=== PATIENT | female | born 1970 | race Hispanic/Latino ===

== ENCOUNTER 2016-05-06 11:33 | Day surgery (SDC) | payer SELFPAY ==
[~2016-05-06] VITALS: Ht 165.1 cm; Wt 86.7 kg
[2016-05-06] VITALS (8 sets, daily range): BP systolic 95–117; BP diastolic 51–69; PULSE 55–83; RESP 15–17; O2SAT 95–99
[~2016-05-06 11:33] MED LIST: ASPI-973 PO; IBUP400T22 PO; LOVA10TA PO; METF1000 PO; MULT-1018 PO
[2016-05-06] MEDS ORDERED: fentaNYL-PF 50 mCg/mL 2 mL Inj ONE (11:34)
[2016-05-06] MEDS ORDERED: MetoCLOpramide 5 mg/mL 2 mL Inj ONE (11:34)
[2016-05-06] MEDS ORDERED: Ondansetron 2 mg/mL 2 mL Inj ONE (11:34)
[2016-05-06] MEDS ORDERED: Propofol 10,000 mCg/mL 20 mL Inj ONE (11:34)
[2016-05-06] MEDS: Lactated Ringer's 1,000 ML IV SCH ×2 (12:01→13:29)
[2016-05-06] MEDS ORDERED: CHOL100043 PO (12:01)
[2016-05-06] MEDS ORDERED: Lactated Ringer's 1,000 ML IV SCH (13:12)
[2016-05-06] MEDS ORDERED: Lactated Ringer's 500 ML IV PRN (13:12)
--- NOTE | 2016-05-06 13:12 | PCM.HPANE ---
Patient Data Surgeon Admitting Provider: Attending Provider:Bao Reis MD Primary Care Physician:Verena Patiño MD Other Provider:Agnes [place] Anesthesia Reason for Visit Thickened Endometrium, Right Vulvar Cyst Ht/WT & BMI Height (Feet): 5 Height (Inches): 5 Weight (Kilograms): 86.7 Body Mass Index 31.00 Allergies Coded Allergies: shrimp (Verified Allergy, Unknown, 05/06/16) Uncoded Allergies: SHRIMP, SEAFOOD (Allergy, Unknown, 05/05/16) Past Anesthesia History Anesthesia History: Denies:: Anesthesia Reactions, Fam Anesthesia Reaction, Fam Malignant Hypertherm, Malignant Hyperthermia Diabetes History Hx Diabetes?: Yes Type of Diabetes: Type II Glycemic Control: Oral Medication MRSA MRSA: No Medications Blood Thinner: Aspirin Hypertension Medication: No Home Meds Incl Beta Shona: No Reported Medications Cholecalciferol (Vitamin D3) (Vitamin D)1,000 Unit Tablet1,000 Unit PO DAILY #1 BOTTLE Ref 0 05/06/16 Ibuprofen 400 Mg [id number] Mg PO TID PRN For Pain Ref 0 05/05/16 Metformin (Glucophage)1,000 Mg Tablet1,000 Mg PO BID Ref 0 05/05/16 Lovastatin 10 Mg [id number] Mg PO HS #30 TABLET Ref 0 05/05/16 Aspirin 81 Mg [id number] Mg PO DAILY Ref 0 05/05/16 Multivitamin (Multi Vitamin Daily)1 Each Tablet1 Each PO DAILY 30 Days Ref 0 05/05/16 Discontinued Reported Medications No Historical Medication Ea 04/04/13 History History of ENT Problems?: Yes HEENT History: Positive for:: TMJ Denies:: Cataracts Hearing Problem Denture Type: Partial- Upper Partial- Lower Hx of Heart Problems?: No Cardiovascular History: Denies:: Hypertension Hx of Respiratory Problem?: No Respiratory History: Denies:: Asthma COPD Emphysema Oxygen Administration Pneumonia Tuberculosis Use of C-PAP Machine Use of Inhalers / NEBS Hx Neurologic Problems?: No Neurological History: Denies:: CVA Headaches Multiple Sclerosis Parkinson's Disease Seizures TIA Hx of GI Problems?: No Gastrointestinal History: Denies:: Cirrhosis Gall Bladder Disease Gastroesphageal Reflux Heartburn Hiatal Hernia Rectal Bleeding Hx of Problems?: No Genitourinary History: Denies:: Kidney Stones Urinary Tract Infection Female Hx: Denies:: Currently Endometriosis (thickened current admission problem ) Pelvic Inflammatory Problems with Breasts? Skin History: Denies:: History Skin Disorders? Pressure Ulcers Hx Musculoskeletal Problems?: No Musculoskeletal History: Denies:: Back Injury Degenerative Joint Fibromyalgia Joint Replacement Musculoskeletal Trauma Osteoarthritis Hx of Psycho/Social Problems?: No Hx Surgeries?: Yes (tubal ligation 09/2010, umb hernia) Hx Any Other Health Problems?: Yes Other History: Denies:: Cancer Endocrine Disease Hospitalization Thyroid Disease History Blood Transfusions: Denies:: Blood Transfusions Hx Diabetes: Yes Hx Alcohol Use: NoHx Substance Use: NoHave You Smoked inLast 12 mo: No Stop/Bang S-Snoring: Do You Snore Loudly: No T-Tired: feel tired, fatigued: No O-Obsered: Observed not breath: No P-Blood Pressure: treated: No B- Body Mass Index > 35 kg/m2: No A- Age over 50: No N- Neck Large Circumference: No G- Gender Male: No JULIANNA Total Score: 0 JULIANNA Risk Assessment: Low Risk, <3 Yes Risk Assessment Category Category 1A: Patient has history of documented sleep apnea, and HAS NOT received any narcotic, sedative or anesthesia administration during this stay. Category 1B: Patient has history of documented sleep apnea, and HAS received any narcotic , sedative or anesthesia administration during this stay Category 2: Patient has SUSPECTED Obstructive Sleep Apnea, and HAS received any narcotic , sedative or anesthesia administration during this stay. Category 3: Patient has SUSPECTED Obstructive Sleep Apnea and HAS NOT received narcotic, sedative or anesthesia administration during this stay. Category 4: Outpatient in Procedural Areas with known sleep apnea or who screen positive for High Risk via the STOP/BANG questionnaire. Exam Exam Vital Signs Vital Signs Date Time Temp Pulse Resp B/P Pulse Ox O2 Delivery O2 Flow Rate FiO2 05/06/16 12:08 37 55 16 95/62 95 Room Air General Appearance: Alert, Oriented X3, Cooperative, No Acute Distress HEENT/AIRWAY: MP 1 Lungs: Clear to Auscultation, Normal Air Movement Heart: Exam Unremarkable, Regular Rate/Rhythm, No Murmurs/Rubs/Gallops Meds/Labs/Diagnostics Admission Meds Current Medications Lactated Ringer's (Lr) 1,000 ml @ 120 mls/hr [id number] IV Last administered on t 12:01; Start 05/06/16 at 05:00; Stop 05/06/16 at 13:19 Plan Impression Patient chart reviewed, patient interviewed and anesthestic plan with risks, benefits, and alternatives discussed, and informed consent obtained. NPO Status: 05/05/16 193 ASA Physical Status: ASA2 Mod Systemic Disease Anesthetic Plan: GA Bene/Risks/Altern/Consents: Yes (via aoc airspace control officer) HP Complete Prior to Induction: Yes Chuck Vaz MD May 06, 2016 12:31
[2016-05-06] MEDS ORDERED: HYDROmorphone 1 mg/mL Inj IVPUSH PRN (13:15)
[2016-05-06] MEDS ORDERED: EPHEDrine Sulfate 50 mg/mL Inj IM PRN (13:15)
[2016-05-06] MEDS ORDERED: hydrALAZINE 20 mg/mL Inj IVPUSH PRN (13:15)
[2016-05-06] MEDS ORDERED: Labetalol 5 mg/mL 4 mL Inj IV PRN (13:15)
[2016-05-06] MEDS ORDERED: MetoCLOpramide 5 mg/mL 2 mL Inj IVPUSH PRN (13:15)
[2016-05-06] MEDS ORDERED: Atropine 0.4 mg/mL Inj IVPUSH PRN (13:15)
[2016-05-06] MEDS ORDERED: hydrOXYzine Inj 25 MG/1 mL SDV IM PRN (13:15)
[2016-05-06] MEDS ORDERED: EPHEDrine Sulfate 50 mg/mL Inj IVPUSH PRN (13:15)
[2016-05-06] MEDS ORDERED: Phenylephrine 10,000 mCg/mL Inj IVPUSH PRN (13:15)
[2016-05-06] MEDS ORDERED: fentaNYL-PF 50 mCg/mL 2 mL Inj IVPUSH PRN (13:15)
[2016-05-06] MEDS ORDERED: Ondansetron 2 mg/mL 2 mL Inj IVPUSH PRN ×2 (13:15→15:10)
[2016-05-06] MEDS ORDERED: Lidocaine 1%-Epi 1:100,000 20 mL Inj INFILTRATE ONE (14:02)
[2016-05-06] MEDS ORDERED: diphenhydrAMINE 25 mg Capsule PO PRN (15:10)
--- NOTE | 2016-05-06 15:15 | PCM.ANEP1 ---
Post Anesthesia Phase 1 PACU Phase 1 Assessment Vital Signs Vital Signs Date Time Temp Pulse Resp B/P Pulse Ox O2 Delivery O2 Flow Rate FiO2 05/06/16 15:10 17 117/69 99 Nasal Cannula 3 05/06/16 15:05 79 15 101/62 99 Nasal Cannula 3 05/06/16 15:00 36.4 83 17 108/59 99 Nasal Cannula 3 05/06/16 12:08 37 55 16 95/62 95 Room Air Anesthetic Administered: GA Level of Alertness: Awake, talking BRUNER's with Equal Strength: Yes Pain: No Nausea or Vomiting: No Oxygen Delivery: Nasal Cannula Lungs: Clear to Auscultation, Normal Air Movement Chuck Vaz MD May 06, 2016 15:15
--- NOTE | 2016-05-06 15:15 | PCM.ANEP2 ---
Post Anesthesia Evaluation ASA/CMS Post Anesthesia VS in Patient's Normal Range?: Yes Resp Stable; Airway Patent?: Yes CV Function & Hydration Stable: Yes Mental Status Recovered?: Yes Pain control Satisfactory?: Yes N/V Control Satisfactory?: Yes Chuck Vaz MD May 06, 2016 15:15
--- NOTE | 2016-05-06 18:18 | OP ---
[address] [address] OPERATIVE REPORT PATIENT: EDU JEAN : 1970 MR#: [id number] ADMIT: 05/06/2016 JOB ID: [id number] DATE OF SURGERY: 05/06/2016 PREOPERATIVE DIAGNOSIS(ES): 1. A 45-year-old, 5, para 4-1-3-0-3 with a right labial cyst 2 x 2 cm. 2. Small pigmented labial lesion 2 x 2 mm. 3. Irregular menses with thick endometrium 1.2 cm on ultrasound. Patient opted to proceed with excision of vulvar cyst with any other lesion and hysteroscopy, dilatation with curettage. POSTOPERATIVE DIAGNOSIS(ES): 1. A 45-year-old, 5, para 4-1-3-0-3 with a right labial cyst 2 x 2 cm. 2. Small pigmented labial lesion 2 x 2 mm. 3. Irregular menses with thick endometrium 1.2 cm on ultrasound. Patient opted to proceed with excision of vulvar cyst with any other lesion and hysteroscopy, dilatation with curettage. SURGEON: Bao Reis MD. PARTS SALES COUNTERPERSON: Micheal Munoz, medical student year 3. ANESTHESIA: General endotracheal. ESTIMATED BLOOD LOSS: 30 cc. IV FLUIDS: 600 cc of crystalloid. DISTENTION MEDIA: For the hysteroscope was normal saline with a deficit of 59 cc at the end of the procedure. PROCEDURE: 1. Excision of right labial cyst 2 x 2 cm. 2. Excision of right labial pigmented lesion that is 2 x 2 mm. 3. Hysteroscopy, dilatation and curettage. PACKS: None. DRAINS: None. CATHETERS: In and out catheter in the beginning of the procedure retrieved 100 cc of clear urine. FINDINGS: 1. Examination under anesthesia revealed a 12 week size anteverted uterus. No adnexal masses appreciated bilaterally. 2. Intraoperative findings: Uterus sounded to 9 cm. 3. Hysteroscopic findings: Hypertrophic endometrium. No masses. No polyps. No fibroids identified. Visualized tubal ostia bilaterally. 4. Right labial cyst originating from the upper edge of the right labia minora 2 x 2 cm in size completely excised. Has another small cyst that contains mucinous material upon excision, around 2 x 2 mm. In addition to these two cysts, there was a small pigmented lesion on the inner surface of the right labia minora that is 2 x 2 mm, dark brown in color, excised for pathology testing. SPECIMEN REMOVED: Yes, to pathology, as the followin. Right labial cysts, one large, one small. 2. Right labial pigmented lesion, as described above. 3. Endometrial curettage and cervical curettage. PROCEDURE IN DETAIL: Risks, benefits, alternatives of the procedure were discussed with the patient. Informed consent signed. Patient moved to the operating room with IV running. After general anesthesia was found to be adequate, examined under anesthesia with above findings. The patient was then prepped and draped in the normal sterile fashion in the dorsal lithotomy position. Attention then turned to the right labial cyst that was grabbed with an Allis clamp. Lidocaine 1% 3 cc with epinephrine injected for local analgesia and using a scalpel, the cyst was excised circumferentially and using Metzenbaum scissors with dissection, the smaller cyst was dissected off as well. Using Bovie coagulation and cutting, the large 2 x 2 cm cyst was completely excised and then upon excising the smaller cyst it ruptured with mucinous substance. This was collected and sent to Pathology with other bigger cysts. The defect was closed with interrupted sutures of 3-0 Vicryl suture in a vertical fashion. Attention was then turned to the small pigmented lesion that was grasped with pickups and excised with a scalpel and the defect was repaired with one interrupted suture of 3-0 Vicryl as well. Good hemostasis was assured. Attention then turned to the hysteroscopy part of the procedure. Weighted speculum inserted into the patient's vagina and anterior lip of the cervix grasped with a single-tooth tenaculum. Uterus was sounded to 9 cm with the uterine sound, cervix dilated up to Hegar dilator number seven. This was sufficient to introduce the MyoSure scope and with normal saline distention medium, the scope was introduced into the patient's uterus with the above findings. Then, pictures were taken, scope removed and then using a sharp curettage cervical curettage collected via endometrial curettage and then a 2nd look with the hysteroscope confirmed adequate curettage. All instruments removed from the patient's vagina and the single-tooth tenaculum insertion site had some bleeding that was controlled with Bovie coagulation. Good hemostasis assured at the end of the procedure. The patient tolerated the procedure well. Sponge, needle, and instrument counts were correct x2. The patient was recovered in a stable condition. Dr. Reis was present and scrubbed for the entire procedure. BARBER
--- NOTE | 2016-05-10 10:36 | PATH ---
SURGICAL PATHOLOGY Attending Physician:Bao Reis MD CASE STATUS: Signed Out PATIENT NAME: EDU JEAN PID: [id number] : 1970 DATE COLLECTED:05/06/2016 23:25 SPECIMEN: 1: Skin, Cyst 2: Vulva, Biopsy 3: Endocervix, Curettage 4: Endometrium, Curettage CLINICAL HISTORY: THICKENED ENDOMETRIUM, RIGHT VULVAR CYST 1). LABIAL CYST, LARGE AND SMALL 2). VULVAR PIGMENTED LESION 3). ENDOCERVICAL CURETTAGE 4). ENDOMETRIAL CURETTAGE FINAL DIAGNOSIS: 1.LABIAL CYST: APOCRINE HYDROCYSTOMA. NO EVIDENCE OF MALIGNANCY OR DYSPLASIA. 2.VULVAR PIGMENTED LESION: SQUAMOUS EPITHELIAL HYPERPLASIA WITH HYPERKERATOSIS. NO EVIDENCE OF MALIGNANCY OR DYSPLASIA. NO SIGNIFICANT MELANOCYTIC PROLIFERATION IDENTIFIED. 3.ENDOCERVICAL CURETTINGS: NO EVIDENCE OF MALIGNANCY OR DYSPLASIA. 4.ENDOMETRIAL CURETTINGS: EARLY SECRETORY ENDOMETRIUM. NO EVIDENCE OF MALIGNANCY OR HYPERPLASIA. ICD10 CODE N90.0 GROSS DESCRIPTION: The specimen is received in four formalin filled containers labeled with the patient's name. 1). The specimen is sublabeled "labia cyst large and small" and consists of 2 portions of tissue. The first measures 0.3 x 0.2 x 0.3 CM. The specimen is inked blue and entirely submitted cassette 1A. The second piece consists of a 2.0 x 1.1 x 2.0 CM cooney-richardson dome shaped piece of skin. The surgical margin is inked blue. 2 energy conservation representative sections are submitted in cassette 1B. 2). The specimen is sublabeled "vulvar pigmented lesion" and consists of a 0.3 x 0.2 x 0.2 CM richardson-brown rough mottled portion of tissue. The specimen is inked blue and entirely submitted in cassette 2A. 3). The specimen is sublabeled "endocervical curettage" the specimen consists of approximately a 0.5 cc aggregate of mucoid material and blood which is entirely submitted in cassette 3A. 4). The specimen is sublabeled "endometrial curettage" and consists of multiple portions of tissue and blood which aggregate to 2.5 x 2.5 x 0.7 CM the specimen is entirely submitted in cassettes 4A, 4B. 05/07/2016 DAC MICRO DESCRIPTION: See diagnosis. ICD-9 CODES: CPT CODES: 1: 54934 2: 99014 3: 84916 4: 19327 Electronically Signed Out Mike Del Rosario MD [facility] [address], [place] [address] Technical component performed at [facility], [facility] [address], [place], [address]
== END 2016-05-06 23:59 | disposition home or self-care (01) ==
LOC: SAS 11:33
PROVIDERS: ATTEND Obstetrics & Gynecology
DX: N92.6 Irregular menstruation, unspecified (principal); D28.0 Benign neoplasm of vulva; N90.7 Vulvar cyst; R93.8 Abnormal findings on diagnostic imaging of other specified body structures; N90.69 Other specified hypertrophy of vulva
CPT/HCPCS: 11420; 11422; 58558; J2405; J2765; J7120